=== PATIENT | female | born 1940 | race Caucasian/White ===

== ENCOUNTER 2016-07-02 19:25 | Inpatient (IN) | payer OTHER ==
[~2016-07-02] VITALS: Ht 162.6 cm; Wt 48.0 kg
--- NOTE | 2016-07-02 20:17 | ED NURSING NOTES ---
Clinical Report - Nurses [facility] [address] [place] [address] 07/02/2016 19:27 [id number] Triage time 19:28. Acuity: LEVEL 3. Chief Complaint: FALL (ground level fall from standing. complained of Right hip pain.). DARRYN COMA SCORE: [place] Coma Scale: 14- eyes open spontaneously (4); best verbal response- disoriented (4); best motor response- obeys commands (6). --19:35 Price Womack R.N. 19:28 07/02/16. BP: 114/76 (small adult cuff) taken while lying. HR: 72. RR: 19. O2 saturation: 95% on room air. Temp: 97.5 F (oral). Kendall-Cade pain scale: 4/10. --19:35 Price Womack R.N. Weight: 49.8 kg estimated. Height/Length: 63 inches Estimated. BMI: 19.5. --19:30 Price Womack R.N. Medications Alendronate Sodium Oral (Tablet 70 mg) 1 tablet, weekly. --20:07 Price Womack R.N. Cerovite Senior Oral. --20:07 Price Womack R.N. Cyanocobalamin Oral. --20:08 Price Womack R.N. Folic Acid Oral. --20:08 Price Womack R.N. Vitamin D Oral. --20:08 Price Womack R.N. LevETIRAcetam Oral. --20:08 Price Womack R.N. Phenytoin Oral 50 mg (2 tablets in AM, 1 tablet at mid day, 2 tablets in PM). --20:09 Price Womack R.N. OLANZapine Oral. --20:10 Price Womack R.N. TraZODone HCl Oral. --20:10 Price Womack R.N. LORazepam Oral 0.5 mg, q6h as needed, Anxiety. --20:10 Price Womack R.N. The following entry was struck by Price Womack R.N., 20:07 (07/02/16) Reason - other. <<STRICKEN ENTRY-- Unable to Obtain. --19:30 Price Womack R.N. --END STRIKE>>. ([facility] medical records. Patient unable to answer questions due to denentia and baseline cognitive impairment). --19:35 Price Womack R.N. Allergies Bees. --20:06 Price Womack R.N. The following entry was struck by Price Womack R.N., 20:06 (07/02/16) Reason - other. <<STRICKEN ENTRY-- No Known Drug Allergy. --19:30 Price Womack R.N. --END STRIKE>>. History Historian: EMS. Unaccompanied. This occurred just prior to arrival. No loss of consciousness. --19:35 Price Womack R.N. <<STRICKEN ENTRY-- SOCIAL HX: History of drug use: heroin. (Last use last week.). --20:00 Cheko Dodson R.N. --END STRIKE>> Charted On Wrong Patient --21:47 Cheko Dodson R.N. PROBLEMS: Dementia. Hypokalemia. Myocardial Infarction. Hypertension. Seizure. Seizure Disorder. Anemia. --19:30 Price Womack R.N. Osteoporosis. Dysphagia. --20:11 Price Womack R.N. Pathological fracture due to osteoporosis. --20:11 Price Womack R.N. ADDITIONAL SURGERIES: Unable to obtain. --19:31 Price Womack R.N. Interventions ID band on patient. To treatment room. --19:35 Price Womack R.N. PHYSICAL ASSESSMENT GENERAL / NEURO / PSYCH: Disoriented. Alert. The patient is disoriented to person, place, time and situation. RESPIRATORY: No respiratory distress. CVS: Capillary refill less than 2 seconds. SKIN: Skin is warm and dry. ( EMS states that the patient tried to get up from the table and fell. they states that she is not ambulatory normally.). --19:36 Price Womack R.N. EXTREMITIES: ( she complains of right hip pain with leg movement and hip palpation). --19:37 Price Womack R.N. NURSING PROGRESS NOTES Patient gowned. Two patient identifiers checked. Call light placed in reach. Side rails up x 2. Bed placed in lowest position. Brakes of bed on. Patient ready for evaluation- chart flagged. Patient waiting for evaluation. --19:36 Price Womack R.N. Patient ID band checked for patient name and birthdate: patient confirmed. Instructions provided to collect clean catch urine and patient verbalized understanding. Catheterized urine collected with return of yellow-colored clear urine; sample sent to lab for urinalysis. Specimen labeled in the presence of the patient. --19:46 Cheko Dodson R.N. 19:53 07/02/16. Patient transported to radiology by stretcher with tech. --19:53 Jenni Cuba R.N. ( pt taken to radiology). --19:57 Price Womack R.N. <<STRICKEN ENTRY-- 20:00 07/02/2016 Site #1 started via IV in the left antecubital space with an 20g angiocath, with aseptic technique and good blood return; one attempt. Blood drawn: rainbow set. Labeled in the presence of the patient and sent to the lab. Saline lock flushed with 10 mL saline. --20:00 Cheko Dodson R.N. --END STRIKE>> Change to Details. --21:02 Cheko Dodson R.N. Patient ID band checked for patient name and birthdate: patient confirmed. Instructions provided to collect clean catch urine and patient verbalized understanding. Clean catch urine collected with return of bloody urine; sample sent to lab for urinalysis. Specimen labeled in the presence of the patient. --20:00 Cheko Dodson R.N. ( Patient currently in XRAY). --20:12 Price Womack R.N. ( Spoke with daughter, says her Mom walks independently. Updated on Mom's condition. Will arrive in ER approximately 2100.). --20:29 Cheko Dodson R.N. 20:00 07/02/2016 Site #1 started via IV in the left antecubital space with an 22g angiocath, with aseptic technique and good blood return; one attempt. Blood drawn: rainbow set. Labeled in the presence of the patient and sent to the lab. Saline lock flushed with 10 mL saline. --21:02 Cheko Dodson R.N. 20:34 07/02/2016 Started bag #1 500 mL IV Fluids IV NS (Saline); at 1000 mL/hr over 30 hour(s) via site #1 via IV pump. Allergies verified and confirmed 5 rights. IV patency established. IV site checked: no pain, redness, or swelling. IV flushed thoroughly pre- and post-medication administration. --20:35 Price Womack R.N. EKG time: (2105 PM). EKG was ordered, performed by a tech and shown to the ED physician. --21:07 Ashanti Arreola 20:59 07/02/2016 Started 1 gm of Ceftriaxone IVPB in bag #1 50 mL; at 100 mL/hr over 30 minute(s) via site #1 via IV pump. Allergies verified and confirmed 5 rights. IV patency established. IV site checked: no pain, redness, or swelling. IV flushed thoroughly pre- and post-medication administration. --21:08 Nettie Johns R.N. ( Per Kristian (Service Control Operator), Dinorah was watching tv when she got up, stumbled, and fell on to carpet. He said it was witnessed fall, she did not hit her head, she did not lose consciousness. He states normally she ambulates indendently.). --21:21 Cheko Dodson R.N. ( Report given to ULICES Grajeda for inpatient care.). --21:34 Price Womack R.N. 21:30 07/02/2016 Ceftriaxone IVPB Discontinued: completed. Total amount infused: 50 mL. IV patency established. IV site checked: no pain, redness, or swelling. IV flushed thoroughly. --22:03 Price Womack R.N. 22:00 07/02/2016 IV Fluids IV NS Continued: upon admission at the rate of 250 mL/hr. 500 mL remaining bag #1. IV patency established. IV site checked: no pain, redness, or swelling. IV flushed thoroughly. --22:03 Price Womack R.N. DISPOSITION / DISCHARGE Condition at departure: stable. Ability to learn limited by dementia. Admitted to Acute Care. Transported via stretcher by transport team with IV. Report was given to a nurse via a phone call. Report included patient's care, treatment, medications, reviewed medication reconcilliation, and condition (including any recent changes or anticipated changes). All questions were answered. Report was acknowledged. ( Report given to ULICES Grajeda). Patient's personal items include: shirt and pants; items were transported with the patient. --21:35 Price Womack R.N. 21:44 07/02/16. BP: 133/59. HR: 65. RR: 20 (unlabored). O2 saturation: 95% on room air. Kendall-Cade pain scale: 4/10. --21:45 Price Womack R.N. ( Orthopedic doctor at bedside, delaying transfer to inpatient room.). --21:47 rPice Womack R.N. <<STRICKEN ENTRY-- Departure time: 2149. --21:50 Price Womack R.N. --END STRIKE>> delaying transfer --21:55 Price Womack R.N. Departure time: 22:02. ( INpatient doctors finished their visit with the patient, and she is now being transported to the inpatient floor.). --22:02 Price Womack R.N. Locked/Released at 07/02/2016 22:04 by Price Womack R.N.
--- NOTE | 2016-07-02 20:17 | ED ORDER SUMMARY ---
..... Patient: JACK PENG OrderSheet [facility] VisitID: [id number] [place] [address] 75y, F Registration Date/Time: 07/02/2016 ORDER SHEET Weight: 49.8 kg (estimated) Allergies: Bees GENERAL ORDERS: PT with INR Urgent (19:38 07/02/2016 PHutchinson DO) (Ack 19:39 [facility]) (20:34 DDavis R.N.) Cardiac Panel Stat (19:38 07/02/2016 [facility] (Ack 19:39 [facility]) (20:34 DDavis R.N.) UA-Culture if indicated Urgent (19:38 07/02/2016 [facility]) (Ack 19:39 [facility]) (19:46 JDeElena R.N.) Dilantin (Phenytoin) Urgent (19:38 07/02/2016 [facility]) (Ack 19:39 [facility]) (20:34 DDavis R.N.) Hip 2V Right w AP Pelvis (fall with left hip area pain) Urgent (19:38 07/02/2016 [facility]) (Ack 19:40 [facility]) (20:25 RFay) Chest 1V Urgent (20:20 07/02/2016 [facility] DO) (Ack 20:24 [facility]) (20:25 RFay) EKG - ER Stat (20:33 07/02/2016 [facility]) (Ack 21:03 [facility]) (21:06 Osmarekimana) Call (Place call to): (Dr Cardenas) (20:57 07/02/2016 [facility]) (Ack 21:03 [facility]) MEDICATION ORDERS: IV FLUIDS: IV NS : initial bolus 500 mL (1000 mL/hr), then 250 mL/hr for X2 (NOW) (19:38 07/02/2016 PHwichinson DO) (Ack 20:10 MWinterer R.N.) (20:35 DDavis R.N.) Ceftriaxone IV 1 gm/50mL (NOW) (20:24 07/02/2016 Edith HARDY) (k 20:41 Cedrick Thompson) (21:08 Natan Dyer.Jazmyne) ORDER SHEET NOTES: [Electronically signed by Price Womack R.N. (22:04 07/02/2016)] [Electronically signed by Ector Decker DO (22:32 07/02/2016)] [Electronically locked/signed by Price Womack R.N. (22:04 07/02/2016)]
--- NOTE | 2016-07-02 20:17 | ED CLINICAL REPORT ---
Clinical Report - Physicians/Mid Levels [facility] [address] [place] [address] 07/02/2016 19:27 Patient: JACK PENG Time Seen: 19:34. Arrived- By ambulance. Historian- patient and EMS personnel. History limited by dementia. Physical Exam limited by dementia. HISTORY OF PRESENT ILLNESS The patient also has injury to right lower extremity (hip). Chief Complaint: FALL. RIGHT HIP INJURY. The injury occurred just prior to arrival. Occurred at a assisted. Fell. The patient complains of moderate pain. No blow to the head, neck pain or loss of consciousness. Not dazed. REVIEW OF SYSTEMS No numbness, hearing loss, headache, loss of vision or chest pain. No depression, weakness, abdominal pain, nausea or difficulty breathing. No bladder dysfunction, laceration, fever or vomiting. All systems otherwise negative, except as recorded above. PAST HISTORY PCP: Dr. Annetta HOLCOMB: Daughter Seizures. Dementia. Myocardial infarction. Hyperlipidemia. Hypokalemia. Myocardial Infarction. Hypertension. Seizure Disorder. Anemia Osteoporosis Surgeries: No history of previous surgery. CODE STATUS: DNR with COMFORT MEASURES ONLY. SOCIAL HISTORY No alcohol use or drug use. Residence: adult family home Is a local resident. Resides in an assisted living center. ADDITIONAL NOTES The nursing notes have been reviewed. PHYSICAL EXAM Vital Signs: 07/02/2016 19:28 BP: 114/76. HR: 72. RR: 19. O2 saturation: 95%. Temp: 97.5 F. Kendall-Cade pain scale: 4/10. Appearance: Alert. Head: No Henry's sign or raccoon eyes. Eyes: EOM intact. ENT: No dental injury. Pharynx normal. Neck: Painless ROM. Non-tender. CVS: Heart sounds normal. Pulses normal. Respiratory: Breath sounds normal. Chest nontender. Abdomen: No visible injury. Soft and nontender. No mass. Back: No tenderness. ROM normal. Skin: Skin intact. Skin warm and dry. Normal skin color. Normal skin turgor. Extremities: Pelvis stable. Pelvis. No erythema. No tenderness. No swelling. No ecchymosis. Right hip: moderate tenderness located in the medial and lateral aspect of the hip. The right leg is shortened. Limited ROM secondary to pain. No erythema, swelling, laceration, abrasion or ecchymosis. No puncture wound or foreign body. No deformity consistent with a fracture or dislocation. Neuro: [place] Coma Scale: 14- eyes open spontaneously (4); best verbal response- disoriented (4); best motor response- obeys commands (6). No motor deficit. No sensory deficit. LABS, X-RAYS, AND EKG EKG: EKG time: (21:05). Rate: 75. Normal P waves. Normal ROSLYN. Normal QRS complex. Normal axis. Non-specific ST segment / T wave abnormalities. The study has been interpreted contemporaneously by me. The EKG appears to be a good tracing. Chest X-ray: No acute disease. Views: AP (portable). Technique: good. The X-rays were interpreted contemporaneously by me. Rt Hip X-ray: Displaced, transverse femoral neck fracture of the right hip. Views: AP. Technique: good. The X-rays were interpreted contemporaneously by me. Laboratory Tests: UA-Culture if indicated: (FIDEL: 07/02/2016 19:45) ( MsgRcvd 07/02/2016 20:22) Final results Test Result Flag Units (Reference) URINE COLOR YELLOW URINE APPEARANCE CLEAR URINE GLUCOSE NEGATIVE (NEGATIVE) URINE BILIRUBIN NEGATIVE (NEGATIVE) URINE KETONE NEGATIVE (NEGATIVE) URINE SPECIFIC GRAVITY 1.020 (1.010-1.030) URINE PH 7.0 (5.0-8.0) URINE PROTEIN NEGATIVE (NEGATIVE) URINE UROBILINOGEN 0.2 EU/dL (0.2-1.0) URINE NITRITE POSITIVE (NEGATIVE) URINE BLOOD NEGATIVE (NEGATIVE) URINE LEUK ESTERASE NEGATIVE (NEGATIVE) URINE RBC NONE SEEN rbc/hpf (0-1) URINE WBC 5-10 wbc/hpf (0-1) URINE EPITHELIAL CELLS RARE EPI/hpf (0-5) URINE BACTERIA MANY (4+) (NONE SEEN) URINE COMMENT CULTURE INDICATED URINE CULTURES ARE SET-UP BASED ON THE FOLLOWING CRITERIA:POSITIVE NITRITEPOSITIVE LEUKOCYTE ESTERASEGREATER THAN 10 WHITE BLOOD CELLSMODERATE (2+) OR GREATER BACTERIA CBC w Diff: (FIDEL: 07/02/2016 20:25) ( [facility] 07/02/2016 20:47) Final results Test Result Flag Units (Reference) WHITE BLOOD COUNT 13.5 H K/uL (4.5-11.5) RED BLOOD COUNT 4.33 M/uL (4.00-5.20) HEMOGLOBIN 12.6 gm/dL (12.0-16.0) HEMATOCRIT 38.2 % (36.0-46.0) MEAN CELL VOLUME 88 fL (80-100) MEAN CORPUSCULAR HGB 29 pg (26-34) MEAN CORPUSCULAR HGB CONC 33 g/dL (31-37) RED CELL DISTRIBUTION WIDTH 14.8 % (11.6-14.8) PLATELET COUNT 266 K/uL (150-400) NEUTROPHIL % 86.9 H % (50-75) LYMPH % 9.0 L % (25-40) MONO % 3.7 % (3-14) EOSINOPHIL % 0.1 % (0-4) BASOPHIL % 0.3 % (0-2) PT with INR: (FIDEL: 07/02/2016 20:25) ( [facility] 07/02/2016 21:00) Final results Test Result Flag Units (Reference) INR 1.0 (0.8-1.2) Low Intensity Therapy: INR 1.5-2.0 PT range 18.5-23.1Mod.Intensity Therapy: INR 2.0-3.0 PT range 23.1-31.5High Intensity Therapy: INR 2.5-3.5 PT range 27.4-35.5High Intensity Therapy 2: INR 3.0-4.0 PT range 31.5-39.3 Dilantin (Phenytoin): (FIDEL: 07/02/2016 20:25) ( [facility] 07/02/2016 21:04) Final results Test Result Flag Units (Reference) PHENYTOIN (DILANTIN) 12.1 ug/mL (10.0-20.0) CHEM 13 PANEL: (FIDEL: 07/02/2016 20:25) ( MsgRcvd 07/02/2016 21:08) Final results Test Result Flag Units (Reference) GLUCOSE 137 H mg/dL (70-110) BUN 24 H mg/dL (7-18) CREATININE 0.7 mg/dL (0.6-1.3) Estimated GFR >60 mL/min Estimated GFR- >60 mL/min Note: Persistent reduction over 3 months in eGFR<60 mL/min/1.73 m2 defines CKD. Patients with eGFR values>=60 mL/min/1.73 m2 may also have CKD if evidence ofpersistent proteinuria. Additional information may be foundat www.kidney.org. SODIUM 148 H mmol/L (136-145) POTASSIUM 3.3 L mmol/L (3.5-5.1) CHLORIDE 110 H mmol/L (98-107) CARBON DIOXIDE 29 mmol/L (21-32) CALCIUM 9.0 mg/dL (8.5-10.1) TOTAL PROTEIN 8.1 g/dL (6.4-8.2) ALBUMIN 3.6 g/dL (3.3-5.0) BILIRUBIN, TOTAL 0.3 mg/dL (0.0-1.0) ALKALINE PHOSPHATASE 196 H U/L (46-116) AST (SGOT) 27 U/L (15-37) ALT (SGPT) 33 U/L (12-78) MAGNESIUM 1.8 mg/dL (1.8-2.4) CPK 68 U/L (24-260) TROPONIN I <0.05 L ng/mL (0.00-1.5) TROPONIN REFERENCE RANGE:<0.1 NEGATIVE0.1-1.5 INDETERMINANT>1.5 POSITIVE . Microbiology: Urine culture ordered. Pulse Oximetry: 07/02/2016 19:28 O2 saturation: 95%. (FIO2 - room air). Interpretation: normal. PROGRESS AND PROCEDURES Course of Care: Normal Saline 500 mL IVPB given. Ceftriaxone 1gm IVP given. Pt is pain free if not moving. No other evident injury now. She is DNR with comfort measures only noted on her POLST. 20:32 07/02/16. RN spoke with the pt's daughter over the phone and daughter states that pt is normally ambulatory with minimal assistance. Discussed case with on-call health care provider, (Todd (orthopedics) call returned 20:15). Reviewed test results. Agreed upon treatment plan. Discussed case with hospitalist, (Ronald call placed 20:58 call returned 21:21). Reviewed test results. Agreed upon treatment plan. Health care provider will see patient in hospital. Patient/family counseled. Old ED records reviewed. Transition orders written. Disposition: Admitted to Acute Care. Condition: guarded and improved. CLINICAL IMPRESSION Mild dehydration. Closed displaced fracture of the subcapital neck of the right femur. Hypokalemia (mild). Mild leukocytosis. No lymphocytosis. Acute urinary tract infection with cystitis. Fall. (Electronically signed by Ector Decker DO 07/02/2016 22:32)
--- NOTE | 2016-07-02 20:17 | ED ORDER SUMMARY ---
..... Patient: JACK PENG OrderSheet [facility] VisitID: [id number] [place] [address] 75y, F Registration Date/Time: 07/02/2016 ORDER SHEET Weight: 49.8 kg (estimated) Allergies: Bees GENERAL ORDERS: PT with INR Urgent (19:38 07/02/2016 PHutchinson DO) (Ack 19:39 [facility] Cell Lead) (20:34 DDavis R.N.) Cardiac Panel Stat (19:38 07/02/2016 [facility]) (Ack 19:39 [facility] Cell Lead) (20:34 DDavis R.N.) UA-Culture if indicated Urgent (19:38 07/02/2016 [facility]) (Ack 19:39 [facility] Cell Lead) (19:46 JDeElena R.N.) Dilantin (Phenytoin) Urgent (19:38 07/02/2016 [facility]) (Ack 19:39 [facility] Cell Lead) (20:34 DDavis R.N.) Hip 2V Right w AP Pelvis (fall with left hip area pain) Urgent (19:38 07/02/2016 [facility]) (Ack 19:40 [facility] Cell Lead) (20:25 RFay) Chest 1V Urgent (20:20 07/02/2016 PHiachinson DO) (Ack 20:24 [facility] Cell Lead) (20:25 RFay) EKG - ER Stat (20:33 07/02/2016 [facility]) (Ack 21:03 [facility] Cell Lead) (21:06 Osmarekimana) Call (Place call to): (Dr Cardenas) (20:57 07/02/2016 [facility]) (Ack 21:03 [facility] Cell Lead) MEDICATION ORDERS: IV FLUIDS: IV NS : initial bolus 500 mL (1000 mL/hr), then 250 mL/hr for X2 (NOW) (19:38 07/02/2016 PHiachinson DO) (Ack 20:10 MWinterer R.N.) (20:35 DDavis R.N.) Ceftriaxone IV 1 gm/50mL (NOW) (20:24 07/02/2016 Edith HARDY) (k 20:41 Cedrick Thompson) (21:08 Natan Dyer.Jazmyne) ORDER SHEET NOTES: [Electronically signed by Price Womack R.N. (22:04 07/02/2016)] [Electronically signed by Ector Decker DO (22:32 07/02/2016)] [Electronically locked/signed by Price Womack R.N. (22:04 07/02/2016)]
--- NOTE | 2016-07-02 20:47 | DIAGNOSTIC IMAGING REPORT ---
PROCEDURE: XR CHEST 1 VIEW INDICATION: PRE OP TECHNIQUE: Portable AP view 08:11 p.m. COMPARISON: Chest x-ray 04/08/2015. FINDINGS: Poor inspiration with mild left basilar atelectasis. Stable mild cardiomegaly. Normal pulmonary vascularity. Osteopenia. Thorax is normal. IMPRESSION: 1. Stable mild cardiomegaly 2. Poor inspiration with mild left basilar atelectasis.
--- NOTE | 2016-07-02 20:48 | DIAGNOSTIC IMAGING REPORT ---
PROCEDURE: XR HIP 2VW W W/O AP PELVIS-RT INDICATION: TRAUMA/INJURY TECHNIQUE: AP view of the pelvis and hips with lateral view of the right hip. COMPARISON: None. FINDINGS: RIGHT HIP: Subcapital right hip fracture with mild lateral and cephalad displacement of the shaft. There is mild varus angulation. PELVIS: Severe osteopenia. Soft tissues are unremarkable. IMPRESSION: 1. Subcapital right hip fracture 2. Osteopenia
--- NOTE | 2016-07-02 21:21 | Progress Note ---
Subjective General Admission History and Physical Examination Patient Name: Dinorah Whalen Admission Date: July 02, 2016 Primary Care Provider: Jerson Littlejohn M.D. Attending Physician: Aj Carney M.D. Admitting Physician: Aj Carney M.D. Pc Maintenance Technician: Kiet Cardenas M.D. Code Status: No Code Room: [address] [place] [address] Historian: Family, previous medical records Reliability: Fair Chief Complaint: Right hip pain, fall History of Present Illness: The patient is a 75-year-old white female with a significant past medical history of dementia, seizure disorder, coronary artery disease status post myocardial infarction, hypertension, osteoporosis, who presented to [facility] emergency department on the day of admission secondary to fall with right hip pain. [facility] ER evaluation was consistent with subcapital fracture of the right hip. Secondary to the above, the patient was admitted by Dr. Aj Carney M.D. with medical consultation by [facility] hospitalist team (Kiet Cardenas M.D.,) for further evaluation and treatment. The patient was apparently in her usual state of health until the day of admission when she experienced a fall with injury to the right hip. She was unable to walk at that time. No other history is available.. No history of syncope. [facility] ER evaluation was consistent with subcapital fracture of the right hip. Secondary to the above, the patient was admitted by Dr. Carney for further evaluation and treatment. PAST MEDICAL HISTORY Illnesses: 1. Dementia 2. Hypertension 3. Coronary artery disease-status post myocardial infarction 4. Osteoporosis 5. Seizure disorder Allergies: 1. No Known Drug Allergies Medications: 1. Alendronate 70 mg by mouth weekly 2. Multivitamin one by mouth daily 3. Vitamin B12 1000 g subcutaneous monthly 4. Folic acid 1 mg by mouth daily 5. Keppra 750 mg by mouth twice a day 6. Phenytoin 100 mg by mouth every morning, 50 mg by mouth every afternoon, 100 mg by mouth daily at bedtime 7. Zyprexa 7.5 mg by mouth daily at bedtime 8. Trazodone 50 mg by mouth daily at bedtime 9. Lorazepam 0.5 mg by mouth every 6 hours when necessary for anxiety/agitation 10. Vitamin D 2000 units by mouth daily 11. Calcium carbonate 500 mg 2 by mouth every 4 hours when necessary for indigestion Surgery: 1. None Injuries: 1. No significant Hospitalizations: 1. For above medical problems FAMILY HISTORY Parents: 1. Father, Shannan, , 80, cause unknown, 2. Mother, Yuko, , 80, cause unknown Siblings: 1. Female, while it, living, 77, colon cancer Children: 1. Female, Tana, living, 54, Guillain-Soria, fibromyalgia, thyroid disease 2. Male, Sheila, living, 41, healthy Other significant family history: None SOCIAL HISTORY 1. Marital Status: Single 2. Caodaism: None 3. Education: Ninth grade 4. Employment History: Farm Operator, disabled, 5. Occupational health exposures: Dust 6. Residence: Adult family home HABITS 1. Tobacco: Past use, amount unknown 2. Drugs: None 3. Alcohol: 1 ounce per week 4. Caffeine: 2 pots per day HEALTH SUPERVISION Item/Test 1. Pap/pelvic exam: 2014 IMMUNIZATIONS: 1. Pneumococcal: Unknown 2. Influenza: Unknown 3. Tetanus: Unknown ADVANCED DIRECTIVES: 1. Living well: Yes 2. POLST: No 3. Code Status: NO CODE, DNR/DNI 4. Durable Power Boxing Trainer Health care: Yes 5. Donor card: No REVIEW OF SYSTEMS Remarkable for those things stated in the history of present illness and past medical history. Seventeen point review of system completed with the following notable findings: Mouth: Edentulous Respiratory: Asthma/COPD Cardiovascular: Low blood pressure Genitourinary: Urinary incontinence Gastrointestinal: Diarrhea Neurological: Fainting, seizure disorder, dementia Blood and lymphatic: Pernicious anemia Endocrine: Heat/cold intolerance Psychological: Depression, anxiety, insomnia Physical Exam Vital Signs / I&Os Blood pressure: 114/76 mmHg Heart rate: 72/minute Respiratory rate: 19/minute Temperature: 97.5 Fahrenheit orally Pulse oximetry: 95% room air General Appearance Alert, Cooperative, No acute distress HEENT Atraumatic, PERRLA, EOMI, Moist mucous membranes Lungs Clear to auscultation, Normal air movement Neck Supple, No JVD Cardiovascular Regular rate and rhythm, Normal S1 and S2, No murmurs, gallops, rubs Abdomen Normal bowel sounds, Soft, No tenderness, No guarding Extremities No cyanosis, No clubbing, No edema, Pain with (R0 LE movement Neurological Cranial nerves intact, No lateralizing signs Psych/Mental Status Mood normal, Confused LAB Results Laboratory Tests 07/02 Chemistry Plasma Sodium (136 - 145 mmol/L) 148 Plasma Potassium (3.5 - 5.1 mmol/L) 3.3 Plasma Chloride (98 - 107 mmol/L) 110 CO2 (Enzymatic) (21 - 32 mmol/L) 29 BUN (7 - 18 mg/dL) 24 Creatinine (0.6 - 1.3 mg/dL) 0.7 Est GFR ( Amer) (mL/min) >60 Est GFR (Non-Af Amer) (mL/min) >60 Glucose (70 - 110 mg/dL) 137 Plasma Calcium (8.5 - 10.1 mg/dL) 9.0 Plasma Magnesium (1.8 - 2.4 mg/dL) 1.8 Total Bilirubin (0.0 - 1.0 mg/dL) 0.3 AST (15 - 37 U/L) 27 ALT (12 - 78 U/L) 33 Alkaline Phosphatase (46 - 116 U/L) 196 Creatine Kinase (24 - 260 U/L) 68 Troponin (0.00 - 1.5 ng/mL) <0.05 Total Protein (6.4 - 8.2 g/dL) 8.1 Albumin (3.3 - 5.0 g/dL) 3.6 Coagulation INR (0.8 - 1.2) 1.0 Hematology WBC (4.5 - 11.5 K/uL) 13.5 RBC (4.00 - 5.20 M/uL) 4.33 Hgb (12.0 - 16.0 gm/dL) 12.6 Hct (36.0 - 46.0 %) 38.2 MCV (80 - 100 fL) 88 MCH (26 - 34 pg) 29 RDW (11.6 - 14.8 %) 14.8 Neut % (Auto) (50 - 75 %) 86.9 Lymph % (Auto) (25 - 40 %) 9.0 [place] % (Auto) (3 - 14 %) 3.7 Eos % (Auto) (0 - 4 %) 0.1 Baso % (Auto) (0 - 2 %) 0.3 Plt Count, EDTA (150 - 400 K/uL) 266 PUBS MCHC (31 - 37 g/dL) 33 Toxicology Phenytoin (10.0 - 20.0 ug/mL) 12.1 Urines Urine Color YELLOW Urine Appearance CLEAR Urine pH (5.0 - 8.0) 7.0 Ur Specific [place] (1.010 - 1.030) 1.020 Urine Protein (NEGATIVE) NEGATIVE Urine Ketones (NEGATIVE) NEGATIVE Urine Blood (NEGATIVE) NEGATIVE Urine Nitrite (NEGATIVE) POSITIVE Urine Bilirubin (NEGATIVE) NEGATIVE Urine Urobilinogen (0.2 - 1.0 EU/dL) 0.2 Ur Leukocyte Esterase (NEGATIVE) NEGATIVE Urine RBC (0 - 1 rbc/hpf) NONE SEEN Urine WBC (0 - 1 wbc/hpf) 5-10 Ur Epithelial Cells (0 - 5 EPI/hpf) RARE Urine Bacteria (NONE SEEN) MANY (4+) Urine Glucose (NEGATIVE) NEGATIVE Urine Comment CULTURE INDICATED Microbiology Date/Time Procedure - Status Source Growth 07/02 1944 Urine Culture - RECD URINE CATH Imaging Chest X-Ray IMPRESSION: 1. Stable mild cardiomegaly 2. Poor inspiration with mild left basilar atelectasis. Dictated by: KALEIGH MONREAL MD D: MECHELLE;07/02/162045 X-Ray Hip/Pelvis-Right Side IMPRESSION: 1. Subcapital right hip fracture 2. Osteopenia Dictated by: KALEIGH MONREAL MD D: MECHELLE;07/02/162046 Assessment and Plan Problem List 1. Closed right hip fracture Plan -Subcapital fracture right hip -Consult orthopedics-Dr. Carney -Patient with no contraindications to surgical intervention 2. Dementia Status Chronic Onset Date Unknown Plan -Long-standing history of dementia -Check TSH, B12, RPR -Monitor 3. Coronary artery disease Status Chronic Onset Date Unknown Plan -Patient with history of coronary artery disease -No recent history of chest pain -EKG unremarkable no acute ST-T wave changes -Monitor -Aspirin 81 mg by mouth daily 4. Hypokalemia Status Acute Onset Date Unknown Plan -Patient with findings of mild hypokalemia -IV supplementation -Monitor 5. Hyperglycemia Status Acute Onset Date Unknown Plan -Patient with findings of mild hyperglycemia -Monitor -Check hemoglobin A1c 6. Hypernatremia Status Acute Onset Date Unknown Plan -Patient with findings of mild hyponatremia -IV fluid support -Monitor 7. Prerenal azotemia Status Acute Onset Date Unknown Plan -Patient with findings of mild dehydration/prerenal azotemia -IV fluids -Monitor 8. Seizure disorder Status Chronic Onset Date Unknown Plan -Patient with History of seizure disorder -Continue Dilantin and Keppra -Dilantin level therapeutic -Monitor 9. UTI (urinary tract infection) Status Acute Onset Date Unknown Plan -Patient with urinalysis suggestive of UTI -Rocephin 1 g IV daily -Check urine C&S Current status: Fair, unstable Anticipated discharge date: Anticipated discharge in 4-to 5 days Anticipated discharge placement: snf facility Patient care time: Time spent in chart review, patient interview, physical exam, CPOE, and care documentation: 70 minutes Visit to patient today: 2 Complexity of care: High Initial patient evaluation: Emergency department Advance care plan: Patient DNR/DNI, NO CODE STATUS E&M Codes Admission: Inpt-High/77444
--- NOTE | 2016-07-02 21:21 | Progress Note ---
Subjective General Admission History and Physical Examination Patient Name: Dinorah Whalen Admission Date: July 02, 2016 Primary Care Provider: Jerson Littlejohn M.D. Attending Physician: Aj Carney M.D. Admitting Physician: Aj Carney M.D. Sack Cleaning Hand: Kiet Cardenas M.D. Code Status: No Code Room: [address] [place] [address] Historian: Family, previous medical records Reliability: Fair Chief Complaint: Right hip pain, fall History of Present Illness: The patient is a 75-year-old white female with a significant past medical history of dementia, seizure disorder, coronary artery disease status post myocardial infarction, hypertension, osteoporosis, who presented to [facility] emergency department on the day of admission secondary to fall with right hip pain. [facility] ER evaluation was consistent with subcapital fracture of the right hip. Secondary to the above, the patient was admitted by Dr. Aj Carney M.D. with medical consultation by [facility] hospitalist team (Kiet Cardenas M.D.,) for further evaluation and treatment. The patient was apparently in her usual state of health until the day of admission when she experienced a fall with injury to the right hip. She was unable to walk at that time. No other history is available.. No history of syncope. [facility] ER evaluation was consistent with subcapital fracture of the right hip. Secondary to the above, the patient was admitted by Dr. Carney for further evaluation and treatment. PAST MEDICAL HISTORY Illnesses: 1. Dementia 2. Hypertension 3. Coronary artery disease-status post myocardial infarction 4. Osteoporosis 5. Seizure disorder Allergies: 1. No Known Drug Allergies Medications: 1. Alendronate 70 mg by mouth weekly 2. Multivitamin one by mouth daily 3. Vitamin B12 1000 g subcutaneous monthly 4. Folic acid 1 mg by mouth daily 5. Keppra 750 mg by mouth twice a day 6. Phenytoin 100 mg by mouth every morning, 50 mg by mouth every afternoon, 100 mg by mouth daily at bedtime 7. Zyprexa 7.5 mg by mouth daily at bedtime 8. Trazodone 50 mg by mouth daily at bedtime 9. Lorazepam 0.5 mg by mouth every 6 hours when necessary for anxiety/agitation 10. Vitamin D 2000 units by mouth daily 11. Calcium carbonate 500 mg 2 by mouth every 4 hours when necessary for indigestion Surgery: 1. None Injuries: 1. No significant Hospitalizations: 1. For above medical problems FAMILY HISTORY Parents: 1. Father, Shannan, , 80, cause unknown, 2. Mother, Yuko, , 80, cause unknown Siblings: 1. Female, while it, living, 77, colon cancer Children: 1. Female, Tana, living, 54, Guillain-Soria, fibromyalgia, thyroid disease 2. Male, Sheila, living, 41, healthy Other significant family history: None SOCIAL HISTORY 1. Marital Status: Single 2. Jainism: None 3. Education: Ninth grade 4. 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 Occupational health exposures: Dust 6. Residence: Adult family home HABITS 1. Tobacco: Past use, amount unknown 2. Drugs: None 3. Alcohol: 1 ounce per week 4. Caffeine: 2 pots per day HEALTH SUPERVISION Item/Test 1. Pap/pelvic exam: 2014 IMMUNIZATIONS: 1. Pneumococcal: Unknown 2. Influenza: Unknown 3. Tetanus: Unknown ADVANCED DIRECTIVES: 1. Living well: Yes 2. POLST: No 3. Code Status: NO CODE, DNR/DNI 4. Durable Power Cargo Trimmer Health care: Yes 5. Donor card: No REVIEW OF SYSTEMS Remarkable for those things stated in the history of present illness and past medical history. Seventeen point review of system completed with the following notable findings: Mouth: Edentulous Respiratory: Asthma/COPD Cardiovascular: Low blood pressure Genitourinary: Urinary incontinence Gastrointestinal: Diarrhea Neurological: Fainting, seizure disorder, dementia Blood and lymphatic: Pernicious anemia Endocrine: Heat/cold intolerance Psychological: Depression, anxiety, insomnia Physical Exam Vital Signs / I&Os Blood pressure: 114/76 mmHg Heart rate: 72/minute Respiratory rate: 19/minute Temperature: 97.5 Fahrenheit orally Pulse oximetry: 95% room air General Appearance Alert, Cooperative, No acute distress HEENT Atraumatic, PERRLA, EOMI, Moist mucous membranes Lungs Clear to auscultation, Normal air movement Neck Supple, No JVD Cardiovascular Regular rate and rhythm, Normal S1 and S2, No murmurs, gallops, rubs Abdomen Normal bowel sounds, Soft, No tenderness, No guarding Extremities No cyanosis, No clubbing, No edema, Pain with (R0 LE movement Neurological Cranial nerves intact, No lateralizing signs Psych/Mental Status Mood normal, Confused LAB Results Laboratory Tests 07/02 Chemistry Plasma Sodium (136 - 145 mmol/L) 148 Plasma Potassium (3.5 - 5.1 mmol/L) 3.3 Plasma Chloride (98 - 107 mmol/L) 110 CO2 (Enzymatic) (21 - 32 mmol/L) 29 BUN (7 - 18 mg/dL) 24 Creatinine (0.6 - 1.3 mg/dL) 0.7 Est GFR ( Amer) (mL/min) >60 Est GFR (Non-Af Amer) (mL/min) >60 Glucose (70 - 110 mg/dL) 137 Plasma Calcium (8.5 - 10.1 mg/dL) 9.0 Plasma Magnesium (1.8 - 2.4 mg/dL) 1.8 Total Bilirubin (0.0 - 1.0 mg/dL) 0.3 AST (15 - 37 U/L) 27 ALT (12 - 78 U/L) 33 Alkaline Phosphatase (46 - 116 U/L) 196 Creatine Kinase (24 - 260 U/L) 68 Troponin (0.00 - 1.5 ng/mL) <0.05 Total Protein (6.4 - 8.2 g/dL) 8.1 Albumin (3.3 - 5.0 g/dL) 3.6 Coagulation INR (0.8 - 1.2) 1.0 Hematology WBC (4.5 - 11.5 K/uL) 13.5 RBC (4.00 - 5.20 M/uL) 4.33 Hgb (12.0 - 16.0 gm/dL) 12.6 Hct (36.0 - 46.0 %) 38.2 MCV (80 - 100 fL) 88 MCH (26 - 34 pg) 29 RDW (11.6 - 14.8 %) 14.8 Neut % (Auto) (50 - 75 %) 86.9 Lymph % (Auto) (25 - 40 %) 9.0 [place] % (Auto) (3 - 14 %) 3.7 Eos % (Auto) (0 - 4 %) 0.1 Baso % (Auto) (0 - 2 %) 0.3 Plt Count, EDTA (150 - 400 K/uL) 266 PUBS MCHC (31 - 37 g/dL) 33 Toxicology Phenytoin (10.0 - 20.0 ug/mL) 12.1 Urines Urine Color YELLOW Urine Appearance CLEAR Urine pH (5.0 - 8.0) 7.0 Ur Specific [place] (1.010 - 1.030) 1.020 Urine Protein (NEGATIVE) NEGATIVE Urine Ketones (NEGATIVE) NEGATIVE Urine Blood (NEGATIVE) NEGATIVE Urine Nitrite (NEGATIVE) POSITIVE Urine Bilirubin (NEGATIVE) NEGATIVE Urine Urobilinogen (0.2 - 1.0 EU/dL) 0.2 Ur Leukocyte Esterase (NEGATIVE) NEGATIVE Urine RBC (0 - 1 rbc/hpf) NONE SEEN Urine WBC (0 - 1 wbc/hpf) 5-10 Ur Epithelial Cells (0 - 5 EPI/hpf) RARE Urine Bacteria (NONE SEEN) MANY (4+) Urine Glucose (NEGATIVE) NEGATIVE Urine Comment CULTURE INDICATED Microbiology Date/Time Procedure - Status Source Growth 07/02 1944 Urine Culture - RECD URINE CATH Imaging Chest X-Ray IMPRESSION: 1. Stable mild cardiomegaly 2. Poor inspiration with mild left basilar atelectasis. Dictated by: KALEIGH MONREAL MD D: MECHELLE;07/02/162045 X-Ray Hip/Pelvis-Right Side IMPRESSION: 1. Subcapital right hip fracture 2. Osteopenia Dictated by: KALEIGH MONREAL MD D: MECHELLE;07/02/162046 Assessment and Plan Problem List 1. Closed right hip fracture Plan -Subcapital fracture right hip -Consult orthopedics-Dr. Carney -Patient with no contraindications to surgical intervention 2. Dementia Status Chronic Onset Date Unknown Plan -Long-standing history of dementia -Check TSH, B12, RPR -Monitor 3. Coronary artery disease Status Chronic Onset Date Unknown Plan -Patient with history of coronary artery disease -No recent history of chest pain -EKG unremarkable no acute ST-T wave changes -Monitor -Aspirin 81 mg by mouth daily 4. Hypokalemia Status Acute Onset Date Unknown Plan -Patient with findings of mild hypokalemia -IV supplementation -Monitor 5. Hyperglycemia Status Acute Onset Date Unknown Plan -Patient with findings of mild hyperglycemia -Monitor -Check hemoglobin A1c 6. Hypernatremia Status Acute Onset Date Unknown Plan -Patient with findings of mild hyponatremia -IV fluid support -Monitor 7. Prerenal azotemia Status Acute Onset Date Unknown Plan -Patient with findings of mild dehydration/prerenal azotemia -IV fluids -Monitor 8. Seizure disorder Status Chronic Onset Date Unknown Plan -Patient with History of seizure disorder -Continue Dilantin and Keppra -Dilantin level therapeutic -Monitor 9. UTI (urinary tract infection) Status Acute Onset Date Unknown Plan -Patient with urinalysis suggestive of UTI -Rocephin 1 g IV daily -Check urine C&S Current status: Fair, unstable Anticipated discharge date: Anticipated discharge in 4-to 5 days Anticipated discharge placement: retirement facility Patient care time: Time spent in chart review, patient interview, physical exam, CPOE, and care documentation: 70 minutes Visit to patient today: 2 Complexity of care: High Initial patient evaluation: Emergency department Advance care plan: Patient DNR/DNI, NO CODE STATUS E&M Codes Admission: Inpt-High/65942
[2016-07-02 22:23] VITALS: BP 148/47
--- NOTE | 2016-07-02 22:32 | ED MED RECONCILIATION SUMMARY ---
Patient: JACK PENG Medication Reconciliation Report [facility] VisitID: [id number] [address] [place] [address] 75y, F Registration Date/Time: 07/02/2016 Weight: 49.8 kg Height/Length: 63 in. BMI: 19.5 ALLERGIES: Bees The patient's Home Medications are listed below: THE FOLLOWING MEDICATIONS NEED TO BE RECONCILED: Alendronate Sodium Oral (70 mg) 1 tablet, weekly Cerovite Senior Oral Cyanocobalamin Oral Folic Acid Oral LevETIRAcetam Oral LORazepam Oral 0.5 mg, q6h, Anxiety OLANZapine Oral Phenytoin Oral 50 mg, 2 tablets in AM, 1 tablet at mid day, 2 tablets in PM TraZODone HCl Oral Vitamin D Oral The source(s) of the original Home Medication information: [facility] medical records. Patient unable to answer questions due to denentia and baseline cognitive impairment The following Medications were given to the patient in the Emergency Department: IV NS IV Fluids bolus 0, then 1000 mL/hr, administered: 07/02/2016 8:34:00 PM Ceftriaxone [IVPB] IVPB bolus 0, then 1 gm 100 mL/hr, administered: 07/02/2016 8:59:00 PM The following Medications were prescribed to the patient: None.
--- NOTE | 2016-07-02 22:32 | ED MED RECONCILIATION SUMMARY ---
Patient: JACK PENG Medication Reconciliation Report [facility] VisitID: [id number] [address] [place] [address] 75y, F Registration Date/Time: 07/02/2016 Weight: 49.8 kg Height/Length: 63 in. BMI: 19.5 ALLERGIES: Bees The patient's Home Medications are listed below: THE FOLLOWING MEDICATIONS NEED TO BE RECONCILED: Alendronate Sodium Oral (70 mg) 1 tablet, weekly Cerovite Senior Oral Cyanocobalamin Oral Folic Acid Oral LevETIRAcetam Oral LORazepam Oral 0.5 mg, q6h, Anxiety OLANZapine Oral Phenytoin Oral 50 mg, 2 tablets in AM, 1 tablet at mid day, 2 tablets in PM TraZODone HCl Oral Vitamin D Oral The source(s) of the original Home Medication information: Located within [facility] medical records. Patient unable to answer questions due to denentia and baseline cognitive impairment The following Medications were given to the patient in the Emergency Department: IV NS IV Fluids bolus 0, then 1000 mL/hr, administered: 07/02/2016 8:34:00 PM Ceftriaxone [IVPB] IVPB bolus 0, then 1 gm 100 mL/hr, administered: 07/02/2016 8:59:00 PM The following Medications were prescribed to the patient: None.
--- NOTE | 2016-07-02 22:32 | ED MAR SUMMARY ---
..... Medication Administration Record [facility] [address] [place] [address] Patient: JACK PENG Visit ID: [id number] 75y, F Weight: 49.8 kg Height/Length: 63 in BMI: 19.5 ALLERGIES: Bees Start 20:34 07/02/2016 Price Womack R.N., Continued Upon Admission 22:00 07/02/2016 Price Womack R.N. Medication Administered: IV NS (SALINE), Dose: IV Fluids over 30 hour(s), Rate: 1000 mL/hr, Dispensed: 500 mL bag, Site: #1 left AC. Medication Ordered: IV NS : initial bolus 500 mL (1000 mL/hr), then 250 mL/hr for X2 (NOW). Start 20:59 07/02/2016 Nettie Johns R.N., Stop 21:30 07/02/2016 Price Womack RJuno Medication Administered: CEFTRIAXONE [IVPB], Dose: 1 gm IVPB over 30 minute(s), Rate: 100 mL/hr, Dispensed: 50 mL bag, Site: #1 left AC. Medication Ordered: Ceftriaxone IV 1 gm/50mL (NOW).
--- NOTE | 2016-07-02 22:32 | ED DISCHARGE INSTRUCTIONS ---
Patient: JACK PENG General Instructions [facility] VisitID: [id number] [address] [place] [address] 75y, F Registration Date/Time: 07/02/2016 Mild dehydration. Closed displaced fracture of the subcapital neck of the right femur. Hypokalemia (mild). Mild leukocytosis. No lymphocytosis. Acute urinary tract infection with cystitis. Fall. (Electronically signed by Ector Decker DO 07/02/2016 22:32)
--- NOTE | 2016-07-02 22:32 | ED MAR SUMMARY ---
..... Medication Administration Record [facility] [address] [place] [address] Patient: JACK PENG Visit ID: [id number] 75y, F Weight: 49.8 kg Height/Length: 63 in BMI: 19.5 ALLERGIES: Bees Start 20:34 07/02/2016 Price Womack R.N., Continued Upon Admission 22:00 07/02/2016 Price Womack R.N. Medication Administered: IV NS (SALINE), Dose: IV Fluids over 30 hour(s), Rate: 1000 mL/hr, Dispensed: 500 mL bag, Site: #1 left AC. Medication Ordered: IV NS : initial bolus 500 mL (1000 mL/hr), then 250 mL/hr for X2 (NOW). Start 20:59 07/02/2016 Nettie Johns R.N., Stop 21:30 07/02/2016 Price Womack RJuno Medication Administered: CEFTRIAXONE [IVPB], Dose: 1 gm IVPB over 30 minute(s), Rate: 100 mL/hr, Dispensed: 50 mL bag, Site: #1 left AC. Medication Ordered: Ceftriaxone IV 1 gm/50mL (NOW).
--- NOTE | 2016-07-02 22:32 | ED DISCHARGE INSTRUCTIONS ---
Patient: JACK PENG General Instructions [facility] VisitID: [id number] [address] [place] [address] 75y, F Registration Date/Time: 07/02/2016 Mild dehydration. Closed displaced fracture of the subcapital neck of the right femur. Hypokalemia (mild). Mild leukocytosis. No lymphocytosis. Acute urinary tract infection with cystitis. Fall. (Electronically signed by Ector Decker DO 07/02/2016 22:32)
--- NOTE | 2016-07-02 22:45 | DIAGNOSTIC IMAGING REPORT ---
PROCEDURE: XR SHOULDER 2 OR MORE VW-LEFT INDICATION: fell TECHNIQUE: Three views. COMPARISON: None. FINDINGS: Mild degenerative changes of the AC joint. Glenohumeral joint is unremarkable. Old left fifth and sixth rib fractures. Osteopenia. No soft tissue calcifications. IMPRESSION: 1. Mild left AC joint degenerative changes
[2016-07-03] VITALS (12 sets, daily range): BP systolic 92–167; BP diastolic 45–122
[2016-07-03] MEDS ORDERED: OLANZAPINE2.5 MG PO (01:29)
[2016-07-03] MEDS ORDERED: TRAZODONE HCL50 MG PO (01:30)
[2016-07-03] MEDS ORDERED: ACETAMINOPHEN325 MG PO (01:31)
[2016-07-03] MEDS ORDERED: CALCIUM CARBON500 MG PO (01:32)
[2016-07-03] MEDS ORDERED: ATIVAN0.5 MG PO ×2 (01:33→01:44)
[2016-07-03] MEDS ORDERED: CEROVITE SENIOR PO (01:36)
[2016-07-03] MEDS ORDERED: BINOSTO70 MG PO (01:36)
[2016-07-03] MEDS ORDERED: CYANOCOBALAM1000 MCG IM (01:38)
[2016-07-03] MEDS ORDERED: KEPPRA500 MG PO (01:39)
[2016-07-03] MEDS ORDERED: FOLIC ACID1 MG PO (01:39)
[2016-07-03] MEDS ORDERED: DILANTIN INFATA50 MG PO ×2 (01:41→01:42)
[2016-07-03] MEDS ORDERED: VITAMIN D-31000 UNIT PO (01:43)
--- NOTE | 2016-07-03 07:13 | Progress Note ---
Subjective General ADVANCED CARE PLAN History of Present Illness The patient is a 75-year-old white female with a significant past medical history of dementia, seizure disorder, coronary artery disease status post myocardial infarction, hypertension, osteoporosis, who presented to [facility] emergency department on the day of admission secondary to fall with right hip pain. [facility] ER evaluation was consistent with subcapital fracture of the right hip. Secondary to the above, the patient was admitted by Dr. Aj Carney M.D. with medical consultation by [facility] hospitalist team (Kiet Cardenas M.D.,) for further evaluation and treatment. For other history present illness, past medical history, family history, social history, review of systems, and admission physical examination please see the patient's history and physical examination and ER visit note in the patient's medical record. A discussion was undertaken with the patient and family regarding previous advance care arrangements/decisions. The following advanced directives were noted by the patient and discussed with me at the time of admission. ADVANCED DIRECTIVES: 1. Living well: Yes 2. POLST: No 3. Code Status: NO CODE, DNR/DNI 4. Durable Power Organ Tuner Electronic Health care: Yes 5. Donor card: No The patient and family have expressed interest in not pursuing any form of resuscitation at this time. She has opted not to pursue intubation/mechanical ventilation, CPR, electrical cardioversion, or life-sustaining efforts involving drugs at the time of cardiopulmonary arrest. The patient's wishes were documented in the chart and orders regarding the family and patient's wishes entered into the [employer] system. The "Advance Care Plan Document" was not distributed to patient to discuss with her family. Less than 30 minutes was spent in performing the above tasks and documentation of the patient's advanced care plan.
--- NOTE | 2016-07-03 07:13 | Progress Note ---
Subjective General ADVANCED CARE PLAN History of Present Illness The patient is a 75-year-old white female with a significant past medical history of dementia, seizure disorder, coronary artery disease status post myocardial infarction, hypertension, osteoporosis, who presented to [facility] emergency department on the day of admission secondary to fall with right hip pain. [facility] ER evaluation was consistent with subcapital fracture of the right hip. Secondary to the above, the patient was admitted by Dr. Aj Carney M.D. with medical consultation by [facility] hospitalist team (Kiet Cardenas M.D.,) for further evaluation and treatment. For other history present illness, past medical history, family history, social history, review of systems, and admission physical examination please see the patient's history and physical examination and ER visit note in the patient's medical record. A discussion was undertaken with the patient and family regarding previous advance care arrangements/decisions. The following advanced directives were noted by the patient and discussed with me at the time of admission. ADVANCED DIRECTIVES: 1. Living well: Yes 2. POLST: No 3. Code Status: NO CODE, DNR/DNI 4. Durable Power Flake Cutter Operator Health care: Yes 5. Donor card: No The patient and family have expressed interest in not pursuing any form of resuscitation at this time. She has opted not to pursue intubation/mechanical ventilation, CPR, electrical cardioversion, or life-sustaining efforts involving drugs at the time of cardiopulmonary arrest. The patient's wishes were documented in the chart and orders regarding the family and patient's wishes entered into the [employer] system. The "Advance Care Plan Document" was not distributed to patient to discuss with her family. Less than 30 minutes was spent in performing the above tasks and documentation of the patient's advanced care plan.
--- NOTE | 2016-07-03 13:49 | Postoperative Progress Note ---
Postop Progress Note Preoperate Diagnosis: subcapital fracture right hip Postoperative Diagnosis: same Surgeon: Aj Carney Economic Development Coordinator Surgeon: none Anesthesia: General ETT Findings: subcapital hip fracture Procedure: right bipolar hip replacement Complications? No Condition: Good EBL: 100 ml Drain(s): none Blood Administered: none Specimen(s) removed? Yes (femoral head) Grafts or Implants? Yes . (See nursing notes for details of grafts/implants)
--- NOTE | 2016-07-03 14:01 | DIAGNOSTIC IMAGING REPORT ---
PROCEDURE: XR HIP 1 VIEW - RIGHT INDICATION: Placement of right hip prosthesis. TECHNIQUE: Portable AP view of the right hip (1300 hours). COMPARISON: Comparison made radiographs of the right hip on 07/02/2016. FINDINGS: Interim placement of right proximal femoral prosthesis (most likely bipolar). Anatomic position. Overlying surgical clips. IMPRESSION: 1. Placement of right proximal femoral prosthesis (anatomic position).
--- NOTE | 2016-07-03 14:47 | Progress Note ---
Subjective General Pt seen and examined post-oepratively. Patient is in good spirits and her pain is under control. Patient otherwise has no problems. Constitutional Other (unabel to accuretly reply-juarez). Physical Exam Vital Signs / I&Os Vital Signs Date Time Temp Pulse Resp B/P Pulse O2 O2 Flow FiO2 Ox Delivery Rate 07/03 1736 97.0 106 16 93/57 100 04 1612 92 16 118/51 96 07/03 1513 78 16 125/66 95 07/03 1430 97.5 88 16 119/47 96 07/03 1410 67 122/53 96 Nasal 0.0 Cannula 07/03 1345 72 16 110/47 94 Nasal 0.0 Cannula 07/03 1328 78 16 100/55 94 Nasal 0.0 Cannula 07/03 1320 97.5 77 16 167/122 95 Nasal 0.0 Cannula 07/03 1305 85 13 101/53 100 Nasal 1.5 Cannula 07/03 1300 98.1 87 12 123/57 99 Nasal 1.5 Cannula 07/03 1255 78 12 113/52 100 Nasal 1.5 Cannula 07/03 1250 99.3 79 12 107/50 97 Nasal 1.5 Cannula 07/03 1245 99.3 79 10 99/49 96 Nasal 1.0 Cannula 07/03 1240 74 12 107/50 100 Nasal 1.0 Cannula 07/03 1235 83 12 120/59 100 Nasal 2.0 Cannula 07/03 1230 73 12 117/56 99 Nasal 2.0 Cannula 07/03 1225 76 12 118/55 98 Nasal 2.0 Cannula 07/03 1220 75 10 111/51 99 Nasal 2.0 Cannula 07/03 1217 77 10 107/60 98 Nasal 2.0 Cannula 07/03 1215 82 9 74/55 99 Nasal 2.0 Cannula 07/03 1212 97.2 92 9 123/55 99 Nasal 2.0 Cannula 07/03 0900 Room Air 07/03 0635 73 16 141/58 95 07/03 0231 98.4 69 16 150/46 97 Room Air 07/03 0000 Room Air 07/02 2223 98.2 65 20 148/47 93 Room Air I&O 07/02 0800 04/15 1600 07/03 0000 Intake Total Output Total Balance General Appearance Alert, Cooperative, No acute distress HEENT Atraumatic, PERRLA, Moist mucous membranes Lungs Clear to auscultation Neck No masses Cardiovascular Regular rate and rhythm, Normal S1 and S2, No murmurs, gallops, rubs Abdomen Soft, No tenderness Extremities No edema, Normal pulses Skin No Breakdown Neurological Normal speech, Normal tone, Cranial nerves intact, Strength 5/5 x4 ext's Psych/Mental Status - demented LAB Results Laboratory Tests 07/02 Chemistry Plasma Sodium (136 - 145 mmol/L) 148 Plasma Potassium (3.5 - 5.1 mmol/L) 3.3 Plasma Chloride (98 - 107 mmol/L) 110 CO2 (Enzymatic) (21 - 32 mmol/L) 29 BUN (7 - 18 mg/dL) 24 Creatinine (0.6 - 1.3 mg/dL) 0.7 Est GFR ( Amer) (mL/min) >60 Est GFR (Non-Af Amer) (mL/min) >60 Glucose (70 - 110 mg/dL) 137 Plasma Calcium (8.5 - 10.1 mg/dL) 9.0 Plasma Magnesium (1.8 - 2.4 mg/dL) 1.8 Total Bilirubin (0.0 - 1.0 mg/dL) 0.3 AST (15 - 37 U/L) 27 ALT (12 - 78 U/L) 33 Alkaline Phosphatase (46 - 116 U/L) 196 Creatine Kinase (24 - 260 U/L) 68 Troponin (0.00 - 1.5 ng/mL) <0.05 Total Protein (6.4 - 8.2 g/dL) 8.1 Albumin (3.3 - 5.0 g/dL) 3.6 Coagulation INR (0.8 - 1.2) 1.0 APTT (24 - 34 SECONDS) 37 Hematology WBC (4.5 - 11.5 K/uL) 13.5 Cancelled RBC (4.00 - 5.20 M/uL) 4.33 Cancelled Hgb (12.0 - 16.0 gm/dL) 12.6 Cancelled Hct (36.0 - 46.0 %) 38.2 Cancelled MCV (80 - 100 fL) 88 Cancelled MCH (26 - 34 pg) 29 Cancelled RDW (11.6 - 14.8 %) 14.8 Cancelled Neut % (Auto) (50 - 75 %) 86.9 Lymph % (Auto) (25 - 40 %) 9.0 [place] % (Auto) (3 - 14 %) 3.7 Eos % (Auto) (0 - 4 %) 0.1 Baso % (Auto) (0 - 2 %) 0.3 Plt Count, EDTA (150 - 400 K/uL) 266 Cancelled PUBS MCHC (31 - 37 g/dL) 33 Cancelled Toxicology Phenytoin (10.0 - 20.0 ug/mL) 12.1 Urines Urine Color YELLOW Urine Appearance CLEAR Urine pH (5.0 - 8.0) 7.0 Ur Specific [place] (1.010 - 1.030) 1.020 Urine Protein (NEGATIVE) NEGATIVE Urine Ketones (NEGATIVE) NEGATIVE Urine Blood (NEGATIVE) NEGATIVE Urine Nitrite (NEGATIVE) POSITIVE Urine Bilirubin (NEGATIVE) NEGATIVE Urine Urobilinogen (0.2 - 1.0 EU/dL) 0.2 Ur Leukocyte Esterase (NEGATIVE) NEGATIVE Urine RBC (0 - 1 rbc/hpf) NONE SEEN Urine WBC (0 - 1 wbc/hpf) 5-10 Ur Epithelial Cells (0 - 5 EPI/hpf) RARE Urine Bacteria (NONE SEEN) MANY (4+) Urine Glucose (NEGATIVE) NEGATIVE Urine Comment CULTURE INDICATED 07/03 07/03 07/03 07/03 07/03 0015 0022 0537 0537 0600 Blood Gas Sample Site RR Total CO2 (24.0 - 30.0 mmol/L) 26.8 ABG pH (7.35 - 7.45) 7.47 ABG pCO2 at Pt Temp (35 - 45 mmHg) 35.5 ABG pO2 at Pt Temp (60.0 - 80.0 mmHg) 67.9 ABG HCO3 (20.0 - 26.0 mmol/L) 25.7 ABG O2 Sat Calc/[place] (95.1 - 100.0 %) 92.7 ABG Base Excess (-6.0 - -6.0 mmol/L) 1.9 ABG Reduced Hgb (%) 7.2 ABG Carboxyhemoglobin (0.5 - 1.5 %) 0.5 ABG Methemoglobin (0.4 - 1.5 %) 0.3 Maxi Test YES Other Total Hgb (12.0 - 16.0 g/dL) 12.1 A-a O2 Gradient (7.0 - 14.0 mmHg) 41.2 Hgb O2 Saturation (95.0 - 100.0 %) 92.0 Respiration Rate (/MIN) 18 Vent Mode RA FiO2 (20 - 101 %) 21 Chemistry Plasma Sodium (136 - 145 mmol/L) 144 Plasma Potassium (3.5 - 5.1 mmol/L) 3.5 Plasma Chloride (98 - 107 mmol/L) 107 CO2 (Enzymatic) (21 - 32 mmol/L) 23 BUN (7 - 18 mg/dL) 17 Creatinine (0.6 - 1.3 mg/dL) 0.7 Est GFR ( Amer) (mL/min) >60 Est GFR (Non-Af Amer) (mL/min) >60 Glucose (70 - 110 mg/dL) 159 Plasma Calcium (8.5 - 10.1 mg/dL) 8.8 Troponin (0.00 - 1.5 ng/mL) <0.05 <0.05 Cancelled B-Natriuretic Peptide (5 - 100 pg/ml) 170 Vitamin B12 (211 - 946 pg/mL) 700 TSH 3rd Generation (0.30 - 3.74 uIU/mL) 3.565 Hematology WBC (4.5 - 11.5 K/uL) 12.3 RBC (4.00 - 5.20 M/uL) 4.63 Hgb (12.0 - 16.0 gm/dL) 13.4 Hct (36.0 - 46.0 %) 41.3 MCV (80 - 100 fL) 89 MCH (26 - 34 pg) 29 RDW (11.6 - 14.8 %) 14.9 Neut % (Auto) (50 - 75 %) 87.5 Lymph % (Auto) (25 - 40 %) 7.3 [place] % (Auto) (3 - 14 %) 4.9 Eos % (Auto) (0 - 4 %) 0.1 Baso % (Auto) (0 - 2 %) 0.2 Plt Count, EDTA (150 - 400 K/uL) 241 PUBS MCHC (31 - 37 g/dL) 32 Serology RPR Pending Microbiology Date/Time Procedure - Status Source Growth 07/02 1944 Urine Culture - RES URINE CATH GRAM NEGATIVE NOHEMY Assessment and Plan Problem List 1. Closed right hip fracture Plan -Subcapital fracture right hip -orthopedic consult appreciated -pt underwent right bipolar hip replacement 2. Dementia Status Chronic Onset Date Unknown Plan - longstanding history of dementia - as per family she is at baseline 3. Coronary artery disease Status Chronic Onset Date Unknown Plan -Patient with history of coronary artery disease -No recent history of chest pain -EKG unremarkable no acute ST-T wave changes -Monitor -Aspirin 81 mg by mouth daily 4. Hypokalemia Status Acute Onset Date Unknown Plan - resolved 5. Hyperglycemia Status Acute Onset Date Unknown Plan - pt has evidence of hyperglycemia - will obtain HBa1c in the am - will keep on sliding scale for the time being 6. Hypernatremia Status Acute Onset Date Unknown 7. Prerenal azotemia Status Acute Onset Date Unknown Plan - will continue to trend bmp - resolving 8. Seizure disorder Status Chronic Onset Date Unknown Plan -Patient with History of seizure disorder -Continue Dilantin and Keppra -Dilantin level therapeutic 9. UTI (urinary tract infection) Status Acute Onset Date Unknown Plan -Patient with urinalysis suggestive of UTI -Rocephin 1 g IV daily - will await urine sensitivities
[2016-07-04 02:55] VITALS: BP 104/60
[2016-07-04 06:55] VITALS: BP 111/49
[2016-07-04 11:49] VITALS: BP 144/86
[2016-07-04 15:27] VITALS: BP 139/62
--- NOTE | 2016-07-04 16:15 | Progress Note ---
Subjective General She apears comfortable. She has taken two percocets in the last two days. She got out of bed with PT today. Physical Exam Vital Signs / I&Os Vital Signs Date Time Temp Pulse Resp B/P Pulse O2 O2 Flow FiO2 Ox Delivery Rate 07/04 1527 97.0 92 18 139/62 98 Room Air 0.0 07/04 1149 98.6 115 18 144/86 98 Room Air 0.0 07/04 0958 Room Air 07/04 0655 99.0 85 18 111/49 93 Room Air 0.0 07/04 0255 104/60 07/04 0220 99.7 97 15 93 Room Air 07/03 2314 103/45 07/03 2313 88 16 92/54 95 Room Air 0.0 07/03 2240 98.4 97 16 96 07/03 1928 Nasal Cannula 07/03 1736 97.0 106 16 93/57 100 07/03 1612 92 16 118/51 96 I&O 07/03 0800 07/03 1600 07/04 0000 Intake Total 902 600 726 Output Total 250 700 275 Balance 652 -100 451 General Appearance Alert, No acute distress, on a pressure reduction mattress. Extremities No edema, No tenderness Imaging The post-op hip x-ray shows satisfactory position Meds/Labs/Orders Lab Results: Laboratory Tests 07/03 07/04 07/04 07/04 1930 0430 0430 0900 Chemistry Plasma Sodium (136 - 145 mmol/L) 143 Cancelled Plasma Potassium (3.5 - 5.1 mmol/L) 3.7 Cancelled Plasma Chloride (98 - 107 mmol/L) 109 Cancelled CO2 (Enzymatic) (21 - 32 mmol/L) 25 Cancelled BUN (7 - 18 mg/dL) 12 Cancelled Creatinine (0.6 - 1.3 mg/dL) 0.8 Cancelled Est GFR ( Amer) (mL/min) >60 Cancelled Est GFR (Non-Af Amer) (mL/min) >60 Cancelled Glucose (70 - 110 mg/dL) 162 Cancelled Hemoglobin A1c % (4.5 - 6.2 %) 5.6 Plasma Calcium (8.5 - 10.1 mg/dL) 7.8 Cancelled Total Bilirubin (0.0 - 1.0 mg/dL) 0.2 AST (15 - 37 U/L) 32 ALT (12 - 78 U/L) 24 Alkaline Phosphatase (46 - 116 U/L) 130 Total Protein (6.4 - 8.2 g/dL) 6.0 Albumin (3.3 - 5.0 g/dL) 2.3 Hematology WBC (4.5 - 11.5 K/uL) 10.6 RBC (4.00 - 5.20 M/uL) 3.56 Hgb (12.0 - 16.0 gm/dL) 11.4 10.3 Hct (36.0 - 46.0 %) 34.6 31.8 MCV (80 - 100 fL) 89 MCH (26 - 34 pg) 29 RDW (11.6 - 14.8 %) 14.6 Neut % (Auto) (50 - 75 %) 81.3 Lymph % (Auto) (25 - 40 %) 10.7 [place] % (Auto) (3 - 14 %) 5.7 Eos % (Auto) (0 - 4 %) 2.0 Baso % (Auto) (0 - 2 %) 0.3 Plt Count, EDTA (150 - 400 K/uL) 191 PUBS MCHC (31 - 37 g/dL) 32 Assessment and Plan Problem List 1. Closed right hip fracture 2. Anemia due to blood loss, acute Plan Activity: with physical therapy Diagnostics: Labs ordered, Urine cultures, klebsiella pneumniae positive urine culture on [facility]
--- NOTE | 2016-07-04 18:02 | Progress Note ---
Subjective General Patient seen and examined, patient is in very good spirits this morning and has no complaints. Patient is otherwise stable and ready for discharge to rehab/snf Constitutional Other (uanbel to provide- dementia ). Physical Exam Vital Signs / I&Os Vital Signs Date Time Temp Pulse Resp B/P Pulse O2 O2 Flow FiO2 Ox Delivery Rate 07/04 1527 97.0 92 18 139/62 98 Room Air 0.0 07/04 1149 98.6 115 18 144/86 98 Room Air 0.0 07/04 0958 Room Air 07/04 0655 99.0 85 18 111/49 93 Room Air 0.0 07/04 0255 104/60 07/04 0220 99.7 97 15 93 Room Air 07/03 2314 103/45 07/03 2313 88 16 92/54 95 Room Air 0.0 07/03 2240 98.4 97 16 96 07/03 1928 Nasal Cannula I&O 07/03 0800 07/03 1600 07/04 0000 Intake Total 902 600 726 Output Total 250 700 275 Balance 652 -100 451 General Appearance Alert, Oriented X3, No acute distress HEENT Atraumatic, PERRLA, Moist mucous membranes Lungs Clear to auscultation Cardiovascular Regular rate and rhythm, Normal S1 and S2, No murmurs, gallops, rubs Abdomen Soft, No tenderness, No masses Extremities No clubbing, No edema, No tenderness, - able to ambulate with not much degree of pain Skin No Breakdown Neurological Normal speech, Normal tone, Cranial nerves intact, No lateralizing signs LAB Results Laboratory Tests 07/03 07/04 07/04 07/04 1930 0430 0430 0900 Chemistry Plasma Sodium (136 - 145 mmol/L) 143 Cancelled Plasma Potassium (3.5 - 5.1 mmol/L) 3.7 Cancelled Plasma Chloride (98 - 107 mmol/L) 109 Cancelled CO2 (Enzymatic) (21 - 32 mmol/L) 25 Cancelled BUN (7 - 18 mg/dL) 12 Cancelled Creatinine (0.6 - 1.3 mg/dL) 0.8 Cancelled Est GFR ( Amer) (mL/min) >60 Cancelled Est GFR (Non-Af Amer) (mL/min) >60 Cancelled Glucose (70 - 110 mg/dL) 162 Cancelled Hemoglobin A1c % (4.5 - 6.2 %) 5.6 Plasma Calcium (8.5 - 10.1 mg/dL) 7.8 Cancelled Total Bilirubin (0.0 - 1.0 mg/dL) 0.2 AST (15 - 37 U/L) 32 ALT (12 - 78 U/L) 24 Alkaline Phosphatase (46 - 116 U/L) 130 Total Protein (6.4 - 8.2 g/dL) 6.0 Albumin (3.3 - 5.0 g/dL) 2.3 Hematology WBC (4.5 - 11.5 K/uL) 10.6 RBC (4.00 - 5.20 M/uL) 3.56 Hgb (12.0 - 16.0 gm/dL) 11.4 10.3 Hct (36.0 - 46.0 %) 34.6 31.8 MCV (80 - 100 fL) 89 MCH (26 - 34 pg) 29 RDW (11.6 - 14.8 %) 14.6 Neut % (Auto) (50 - 75 %) 81.3 Lymph % (Auto) (25 - 40 %) 10.7 [place] % (Auto) (3 - 14 %) 5.7 Eos % (Auto) (0 - 4 %) 2.0 Baso % (Auto) (0 - 2 %) 0.3 Plt Count, EDTA (150 - 400 K/uL) 191 PUBS MCHC (31 - 37 g/dL) 32 Assessment and Plan Problem List 1. Subcapital fracture of neck of right femur Plan - s/p surgical interventin - pain control is adequate - PT to see - will most likely benefit from snf/rehab 2. UTI (urinary tract infection) Status Acute Onset Date Unknown Plan - will c/w ceftriaxone 3. Seizure disorder Status Chronic Onset Date Unknown Plan - will c./w home medications
[2016-07-04 19:11] VITALS: BP 131/62
[2016-07-04 22:53] VITALS: BP 115/60
[2016-07-05 02:05] VITALS: BP 113/58
[2016-07-05 07:30] VITALS: BP 111/45
--- NOTE | 2016-07-05 07:39 | CONSULTATION REPORT ---
DATE OF CONSULTATION: 07/02/2016 CONSULTING PHYSICIAN: Aj Carney MD REFERRING PHYSICIAN: Dr. Cardenas. HISTORY OF PRESENT ILLNESS: Dr. Cardenas thank you kindly for requesting an orthopedic consultation on this 75 year-old woman. The history was obtained from the patient's daughter because the patient herself did not know that she was in a hospital. Once I told her that she was in a hospital, she did not know why she was in the hospital. She was not aware that she had a broken hip. The patient's daughter says that she had seen the patient in the custodial 3 days prior to the accident and that her mother was reportedly walking around the custodial without any walking aids and without any problem. She suddenly stopped walking and complained of pain with motion of the right hip and was sent to our emergency room where x-rays have revealed a displaced subcapital fracture of the hip. She is being hospitalized for this problem. MEDICAL/SURGICAL HISTORY: Past medical history: The family reports that the patient has a history of high blood pressure, pernicious anemia, seizure disorder, and osteoporosis. They report that she was hospitalized at [facility] in the dementia unit for 5 months, then transferred briefly to an assisted living facility. She fell and pulled a dresser down on top of her within 3 days of arriving at the assisted living facility and went back to the dementia unit and then to rehabilitation. SOCIAL HISTORY: She is a retired counter waitress/waiter. Her dementia proved bad enough in the last few years that she has been living in assisted living. She had stopped drinking alcoholic beverages and stopped smoking several years ago. FAMILY HISTORY: There is no related family history for the fracture. REVIEW OF SYSTEMS: Negative, except for the history of present illness. The patient was unable to give a review of systems secondary to dementia. PHYSICAL EXAMINATION: GENERAL: Reveals a thin woman, reasonably well-developed for age, in no acute distress at bedrest. VITAL SIGNS: Her temperature is 98.2 degrees Fahrenheit orally, pulse 65 per minute and regular, respirations 20 per minute. Blood pressure is 148/47. Bedside pulse oximetry is 93%. MUSCULOSKELETAL: Orthopedic examination shows that the neck is supple in rotation. She raises her right arm at the shoulder and flexes and extends the right elbow and wrist. She does not raise the left arm at the shoulder more than 30 degrees, but is not complaining of pain. The wrist and fingers move painlessly. Palpation of the spine done by palpating from posterior while she lies supine with her broken hip, shows no tenderness to digital palpation from C7 to the sacrum. She is lying with both hips and knees flexed. The left hip can be painlessly flexed and extended passively. There was no tenderness in the calf. The right hip is held in a position of 40 degrees of flexion and 40 degrees of knee flexion. There is pain with any attempt to move the hip. The remainder of the right lower extremity includes no tenderness of the calf or the right knee. There is an excellent dorsalis pedis pulse on the right. LAB/IMAGING: Her CBC has a white count of 13,500. Her hematocrit is 38.2, hemoglobin 12.6, and a platelet count of 266,000. Her electrolytes show a potassium of 3.3, sodium of 148, BUN of 24, creatinine of 0.7, glucose of 137. Liver enzymes are normal except for alkaline phosphatase, which is elevated at 196, with an upper limit of normal of 116. Chest x-ray shows mild left basilar atelectasis. Stable mild cardiomegaly. Right hip x-rays shows a displaced subcapital fracture of the hip. IMPRESSION: 1. Right subcapital hip fracture. 2. Seizure disorder. 3. Hypertension. 4. Pernicious anemia by history, although the patient is not currently anemic. PLAN: Hydration overnight. Keep her nothing by mouth after midnight. Dr. Cardenas is obtaining additional information for preoperative medical evaluation and, if all is well, then I would go ahead with surgery at 10:00 in the morning. The risks and benefits of the surgery were explained to the daughter, who said she has Power Of Vice President Industrial Relations, and she consented to the procedure. In addition to giving her the risks and benefits, I briefly explained that her job as Power Of Vice President Industrial Relations and medical ombudsman was to have me do what the patient would have wanted me to do. I asked if that meant doing surgery or, using other words, putting her on Hospice. She definitely said she would go ahead with the surgery.
--- NOTE | 2016-07-05 07:39 | CONSULTATION REPORT ---
DATE OF CONSULTATION: 07/02/2016 CONSULTING PHYSICIAN: Aj Carney MD REFERRING PHYSICIAN: Dr. Cardenas. HISTORY OF PRESENT ILLNESS: Dr. Cardenas thank you kindly for requesting an orthopedic consultation on this 75 year-old woman. The history was obtained from the patient's daughter because the patient herself did not know that she was in a hospital. Once I told her that she was in a hospital, she did not know why she was in the hospital. She was not aware that she had a broken hip. The patient's daughter says that she had seen the patient in the shelter 3 days prior to the accident and that her mother was reportedly walking around the shelter without any walking aids and without any problem. She suddenly stopped walking and complained of pain with motion of the right hip and was sent to our emergency room where x-rays have revealed a displaced subcapital fracture of the hip. She is being hospitalized for this problem. MEDICAL/SURGICAL HISTORY: Past medical history: The family reports that the patient has a history of high blood pressure, pernicious anemia, seizure disorder, and osteoporosis. They report that she was hospitalized at [facility] in the dementia unit for 5 months, then transferred briefly to an assisted living facility. She fell and pulled a dresser down on top of her within 3 days of arriving at the assisted living facility and went back to the dementia unit and then to rehabilitation. SOCIAL HISTORY: She is a retired take away attendant. Her dementia proved bad enough in the last few years that she has been living in assisted living. She had stopped drinking alcoholic beverages and stopped smoking several years ago. FAMILY HISTORY: There is no related family history for the fracture. REVIEW OF SYSTEMS: Negative, except for the history of present illness. The patient was unable to give a review of systems secondary to dementia. PHYSICAL EXAMINATION: GENERAL: Reveals a thin woman, reasonably well-developed for age, in no acute distress at bedrest. VITAL SIGNS: Her temperature is 98.2 degrees Fahrenheit orally, pulse 65 per minute and regular, respirations 20 per minute. Blood pressure is 148/47. Bedside pulse oximetry is 93%. MUSCULOSKELETAL: Orthopedic examination shows that the neck is supple in rotation. She raises her right arm at the shoulder and flexes and extends the right elbow and wrist. She does not raise the left arm at the shoulder more than 30 degrees, but is not complaining of pain. The wrist and fingers move painlessly. Palpation of the spine done by palpating from posterior while she lies supine with her broken hip, shows no tenderness to digital palpation from C7 to the sacrum. She is lying with both hips and knees flexed. The left hip can be painlessly flexed and extended passively. There was no tenderness in the calf. The right hip is held in a position of 40 degrees of flexion and 40 degrees of knee flexion. There is pain with any attempt to move the hip. The remainder of the right lower extremity includes no tenderness of the calf or the right knee. There is an excellent dorsalis pedis pulse on the right. LAB/IMAGING: Her CBC has a white count of 13,500. Her hematocrit is 38.2, hemoglobin 12.6, and a platelet count of 266,000. Her electrolytes show a potassium of 3.3, sodium of 148, BUN of 24, creatinine of 0.7, glucose of 137. Liver enzymes are normal except for alkaline phosphatase, which is elevated at 196, with an upper limit of normal of 116. Chest x-ray shows mild left basilar atelectasis. Stable mild cardiomegaly. Right hip x-rays shows a displaced subcapital fracture of the hip. IMPRESSION: 1. Right subcapital hip fracture. 2. Seizure disorder. 3. Hypertension. 4. Pernicious anemia by history, although the patient is not currently anemic. PLAN: Hydration overnight. Keep her nothing by mouth after midnight. Dr. Cardenas is obtaining additional information for preoperative medical evaluation and, if all is well, then I would go ahead with surgery at 10:00 in the morning. The risks and benefits of the surgery were explained to the daughter, who said she has Power Of Audio/Video Technician, and she consented to the procedure. In addition to giving her the risks and benefits, I briefly explained that her job as Power Of Audio/Video Technician and medical ombudsman was to have me do what the patient would have wanted me to do. I asked if that meant doing surgery or, using other words, putting her on Hospice. She definitely said she would go ahead with the surgery.
--- NOTE | 2016-07-05 07:50 | OPERATIVE REPORT ---
DATE OF SURGERY: 07/03/2016 SURGEON: Aj Carney MD MICROARRAY ANALYST: None. PREOPERATIVE DIAGNOSIS: 1. Subcapital fracture of the right hip POSTOPERATIVE DIAGNOSIS: 1. Subcapital fracture of the right hip PROCEDURE: 1. Right bipolar hip replacement ANESTHESIA: General by endotracheal tube. COMPLICATIONS: None. CONDITION: Good. SURGICAL FINDINGS: Subcapital right hip fracture. ESTIMATED BLOOD LOSS: 100 mL. Blood administered: None. DRAINS: None. PATHOLOGY SPECIMENS: Right femoral head. IMPLANTS/GRAFTS: All produced by [employer]. They are a 28 mm outer diameter -3 mm neck length, 12/14 taper femoral head of cobalt chrome catalog # [id number] and a Synergy cemented femoral stem forged cobalt chrome size 9 and catalog #[id number] and a bipolar outer head with a 28 mm inner diameter and a 45 mm outer diameter made of cobalt chrome catalog #[id number]. There was a cement restrictor small size, placed in the femoral medullary canal. This was catalog # [id number]. DESCRIPTION OF PROCEDURE: The patient was brought to the operating room and anesthetized on the [facility]. When she was anesthetized, she was moved to the operating table and placed in the left lateral decubitus with the right side up and held in place with a beanbag. An axillary pad was used just below the armpit and pressure points were padded. A time-out was held and the patient was identified by name and birthdate. The side of surgery and the nature of surgery was identified and the preoperative antibiotic of 1 gram cefazolin was confirmed. All present agreed. The left hip was sterilely prepped, painted and draped. A posterolateral approach was used to the hip. Skin and subcutaneous tissue were cut in the same line and the gluteus muscle was cut in line with its fibers. The short external rotators were taken off the posterior aspect of the trochanter. The capsule was cut in a T-shaped fashion along the posterior trochanter and in line with the femoral neck. The exposed the femoral neck was osteotomized in line with the angle of the collar of the prosthesis. The femoral head was removed and measured at 45 mm diameter and the diameter of the outer head was confirmed on the second measurement. Attention was then turned to the femoral shaft. This was opened with hand-held reamers and then the canal was broached up to a size 9 femoral stem. The size 9 femoral stem was the final broach and the broach stem was used to trial femoral neck length. The canal was plugged with a cement restrictor and brushed out and irrigated out. We confirmed that the acetabulum was clean of debris and it was irrigated out and sucked dry. Then, the Simplex cement with tobramycin was mixed and injected in the femoral canal from the cement restrictor upward and the permanent size [address]. Excess cement was removed and the cement was allowed to harden. Then, we trialed once again for neck length. The standard neck length was felt to be tight in extension and the -3 fit well and had good stability. A -3 neck length was chosen for the inner head of the bipolar assembly. The bipolar was assembled on the table and then tapped into place on the femoral stem. We made sure it could not disassociate by pulling up on it manually. We then located the final assembly into place and did a last check of good stability and tension. The capsule was repaired with #1 Vicryl and the fascia and subcutaneous tissue were closed with absorbable sutures. The skin was closed with jozef. A sterile dressing was placed upon the wound and the patient awakened. She left the operating room in good condition.
--- NOTE | 2016-07-05 07:50 | OPERATIVE REPORT ---
DATE OF SURGERY: 07/03/2016 SURGEON: Aj Carney MD SHEATHER: None. PREOPERATIVE DIAGNOSIS: 1. Subcapital fracture of the right hip POSTOPERATIVE DIAGNOSIS: 1. Subcapital fracture of the right hip PROCEDURE: 1. Right bipolar hip replacement ANESTHESIA: General by endotracheal tube. COMPLICATIONS: None. CONDITION: Good. SURGICAL FINDINGS: Subcapital right hip fracture. ESTIMATED BLOOD LOSS: 100 mL. Blood administered: None. DRAINS: None. PATHOLOGY SPECIMENS: Right femoral head. IMPLANTS/GRAFTS: All produced by [employer]. They are a 28 mm outer diameter -3 mm neck length, 12/14 taper femoral head of cobalt chrome catalog # [id number] and a [employer]nergy cemented femoral stem forged cobalt chrome size 9 and catalog #[id number] and a bipolar outer head with a 28 mm inner diameter and a 45 mm outer diameter made of cobalt chrome catalog #[id number]. There was a cement restrictor small size, placed in the femoral medullary canal. This was catalog # [id number]. DESCRIPTION OF PROCEDURE: The patient was brought to the operating room and anesthetized on the [facility]. When she was anesthetized, she was moved to the operating table and placed in the left lateral decubitus with the right side up and held in place with a beanbag. An axillary pad was used just below the armpit and pressure points were padded. A time-out was held and the patient was identified by name and birthdate. The side of surgery and the nature of surgery was identified and the preoperative antibiotic of 1 gram cefazolin was confirmed. All present agreed. The left hip was sterilely prepped, painted and draped. A posterolateral approach was used to the hip. Skin and subcutaneous tissue were cut in the same line and the gluteus muscle was cut in line with its fibers. The short external rotators were taken off the posterior aspect of the trochanter. The capsule was cut in a T-shaped fashion along the posterior trochanter and in line with the femoral neck. The exposed the femoral neck was osteotomized in line with the angle of the collar of the prosthesis. The femoral head was removed and measured at 45 mm diameter and the diameter of the outer head was confirmed on the second measurement. Attention was then turned to the femoral shaft. This was opened with hand-held reamers and then the canal was broached up to a size 9 femoral stem. The size 9 femoral stem was the final broach and the broach stem was used to trial femoral neck length. The canal was plugged with a cement restrictor and brushed out and irrigated out. We confirmed that the acetabulum was clean of debris and it was irrigated out and sucked dry. Then, the Simplex cement with tobramycin was mixed and injected in the femoral canal from the cement restrictor upward and the permanent size [address]. Excess cement was removed and the cement was allowed to harden. Then, we trialed once again for neck length. The standard neck length was felt to be tight in extension and the -3 fit well and had good stability. A -3 neck length was chosen for the inner head of the bipolar assembly. The bipolar was assembled on the table and then tapped into place on the femoral stem. We made sure it could not disassociate by pulling up on it manually. We then located the final assembly into place and did a last check of good stability and tension. The capsule was repaired with #1 Vicryl and the fascia and subcutaneous tissue were closed with absorbable sutures. The skin was closed with jozef. A sterile dressing was placed upon the wound and the patient awakened. She left the operating room in good condition.
[2016-07-05 11:46] VITALS: BP 125/49
[2016-07-05 14:56] VITALS: BP 125/49
[2016-07-05] MEDS ORDERED: CEFPODOXIME PR200 MG PO (15:20)
--- NOTE | 2016-07-05 15:22 | Provider's Discharge Care Plan ---
Problem, Goal, Plan Problem List 1. Subcapital fracture of neck of right femur Instructions: - toe touch weight bearing - follow up with orthopedics in one week 2. UTI (urinary tract infection) Instructions: - continue with antibioitics for the next 5 days 3. Dementia Instructions: Take meds as directed
--- NOTE | 2016-07-05 15:28 | Discharge Summary ---
Discharge Summary Report Admit Date 07/02/16 Discharge Date 07/05/16 Admission Diagnosis hip fracture Discharge Diagnosis hip fracutre with urinary tract infection Brief History please refer to admission h&p Hospital Course Patient was admitted for hip fracture of the right side. Patient was additionally seen to have a urinary tract infection. Patient was admitted, had a ORIF of the right femur and tolerate the procedure well. The day after the procedure the patient was monitored and seen by physical therapy. Patient was able to ambulate well with ortho restrictions and it was seen that the patient was a candidate for out patient rehab. Patient was seen to have a stable hemoglobin and a stable3 wbc. At this point the patient is stable for discharge. Patient will be discharged to [facility], she will follow up with orthopedics as directed, she will resume all her home medications, and will complete her course of antibiotics. General Appearance Alert, No acute distress HEENT PERRLA, Mucous membran moist/pink Lungs Normal air movement Cardiovascular Normal S1, Normal S2 Abdomen Soft, No tenderness Skin No Breakdown, No Significant Lesions Neurological Normal tone, Sensation intact, Cranial nerves 3-12 NL Discharge Instructions/Meds - ortho follow up as directed - take medications as directed - complete course of antibiotics
[2016-07-05 16:44] VITALS: BP 151/67
== END 2016-07-05 17:04 | DRG 470 ==
LOC: ED SRH 19:25 → TRANS SRH 20:39 → ACUTE2 SRH 23:01 → CC SRH 07-03 13:17 → ACUTE2 SRH 07-05 05:16
PROVIDERS: Orthopaedic Surgery; ADMIT Emergency Medicine
PROC: 0SRR0J9 Replacement of Right Hip Joint, Femoral Surface with Synthetic Substitute, Cemented, Open Approach (ICD-10-PCS; principal; 2016-07-03 10:00)
DX: S72.011A Unspecified intracapsular fracture of right femur, initial encounter for closed fracture (principal); W19.XXXA Unspecified fall, initial encounter; Y92.129 Unspecified place in nursing home as the place of occurrence of the external cause; N39.0 Urinary tract infection, site not specified; B96.1 Klebsiella pneumoniae [K. pneumoniae] as the cause of diseases classified elsewhere; D62 Acute posthemorrhagic anemia; E87.0 Hyperosmolality and hypernatremia; R39.2 Extrarenal uremia; E87.6 Hypokalemia; R73.9 Hyperglycemia, unspecified; Y99.8 Other external cause status; I10 Essential (primary) hypertension; G40.909 Epilepsy, unspecified, not intractable, without status epilepticus; M81.0 Age-related osteoporosis without current pathological fracture; F03.90 Unspecified dementia, unspecified severity, without behavioral disturbance, psychotic disturbance, mood disturbance, and anxiety; I25.10 Atherosclerotic heart disease of native coronary artery without angina pectoris; I25.2 Old myocardial infarction